=== PATIENT | male | born 1970 | race African-American/Black ===

== ENCOUNTER 2019-10-28 20:07 | Inpatient (IN) | payer OTHER ==
[~2019-10-28] VITALS: Ht 167.6 cm; Wt 71.2 kg
[2019-10-28 20:11] VITALS: Ht 167.6 cm; Wt 71.2 kg
[2019-10-28 21:03] LABS: BASOPHIL % 0.3 % (0-2); PLATELET COUNT 240 x10^3mcL (130-400); RED CELL DISTRIBUTION WIDTH 13.2 % (11.5-14.5)
[2019-10-28 21:17] LABS: ALBUMIN 4.5 g/dL (3.4-5.0); ALKALINE PHOSPHATASE 43 U/L (46-116); ALT/SGPT 44 U/L (16-63); AST/SGOT 38 U/L (15-37); BILIRUBIN TOTAL 0.7 mg/dL (0.20-1.00); CALCIUM 9.4 mg/dL (8.5-10.1); CARBON DIOXIDE 29.5 mmol/L (21-32); CHLORIDE SERUM 99 mmol/L (98-107); CREATININE SERUM 1.2 mg/dL (0.7-1.3); GFR1 > 60 mL/min; GLUCOSE SERUM 106 mg/dL (74-106); LIPASE 1115 IU/L (73-393); POTASSIUM SERUM 3.6 mmol/L (3.5-5.1); SODIUM SERUM 139 mmol/L (136-145); TOTAL PROTEIN, SERUM 8.5 g/dL (6.4-8.2)
[2019-10-28 23:57] LABS: CHOLESTEROL/HDL RATIO 2.9
[2019-10-29] MEDS ORDERED: HYOSCYAMINE0.125 M3 (01:41)
[2019-10-29] MEDS ORDERED: ZOF4 (01:41)
[2019-10-29 02:51] VITALS: BP 125/80
[2019-10-29 05:44] VITALS: BP 127/82
[2019-10-29 08:16] VITALS: BP 132/71
[2019-10-29 12:25] VITALS: BP 114/76
[2019-10-29 15:10] LABS: microscopic required? NO
[2019-10-29 15:22] LABS: urine erythrocyte NEGATIVE (NEGATIVE)
[2019-10-29 15:40] LABS: AMPHETAMINE QUAL UR NONE DETECTED (See below)
[2019-10-29 15:55] LABS: BASOPHIL % 0.3 % (0-2); PLATELET COUNT 208 x10^3mcL (130-400); RED CELL DISTRIBUTION WIDTH 13.5 % (11.5-14.5)
[2019-10-29 16:11] LABS: CALCIUM 8.9 mg/dL (8.5-10.1); CARBON DIOXIDE 33.3 mmol/L (21-32); CHLORIDE SERUM 101 mmol/L (98-107); CREATININE SERUM 1.2 mg/dL (0.7-1.3); GFR1 > 60 mL/min; GLUCOSE SERUM 97 mg/dL (74-106); POTASSIUM SERUM 3.7 mmol/L (3.5-5.1); SODIUM SERUM 139 mmol/L (136-145)
[2019-10-29 16:16] LABS: ALBUMIN 3.8 g/dL (3.4-5.0); ALKALINE PHOSPHATASE 38 U/L (46-116); ALT/SGPT 33 U/L (16-63); AST/SGOT 22 U/L (15-37); BILIRUBIN TOTAL 0.7 mg/dL (0.20-1.00); TOTAL PROTEIN, SERUM 7.5 g/dL (6.4-8.2)
[2019-10-29 17:02] VITALS: BP 121/81
[2019-10-29 20:50] VITALS: BP 112/70
[2019-10-30 04:40] VITALS: BP 105/67
[2019-10-30 08:00] VITALS: BP 104/68
[2019-10-30 08:18] VITALS: BP 104/68
[2019-10-30 11:58] VITALS: BP 117/76
[2019-10-30 12:15] VITALS: BP 115/76
[2019-10-30 12:29] VITALS: BP 117/76
== END 2019-10-30 16:04 | disposition home or self-care (01) | DRG 440 ==
LOC: ED 20:07 → DU 10-29 00:24
PROVIDERS: Emergency Medicine; Internal Medicine Gastroenterology; ADMIT Internal Medicine; ATTEND Internal Medicine
PROC: 0DB68ZX Excision of Stomach, Via Natural or Artificial Opening Endoscopic, Diagnostic (ICD-10-PCS; principal; 2019-10-30 09:30)
DX: K85.90 Acute pancreatitis without necrosis or infection, unspecified (principal); Z20.828 Contact with and (suspected) exposure to other viral communicable diseases; E78.5 Hyperlipidemia, unspecified; K76.0 Fatty (change of) liver, not elsewhere classified; Z79.899 Other long term (current) drug therapy
CPT/HCPCS: 43235; 82962; C9113; G0378; G0480; J1170; J1200; J1610; J2250; J2270; J2310; J2405; J2543; J3010; J3490; J7030; J7042; J7120; Q0092; Q9967